=== PATIENT | male | born 1970 | race Two or more races ===

== ENCOUNTER 2020-10-21 18:09 | Emergency (ER) | payer SELFPAY ==
[~2020-10-21] VITALS: Ht 172.7 cm; Wt 55.3 kg
[2020-10-21 18:59] LABS: BASOPHILS % (AUTO) 0.7 % (0.0-2.0); EOSINOPHILS % (AUTO) 0.6 % (0.0-6.0); HEMATOCRIT 47 % (39-51); HEMOGLOBIN 15.5 g/dL (13.5-17.5); LYMPHOCYTES # (AUTO) 0.8 /CMM (0.8-4.8); LYMPHOCYTES % (AUTO) 12.3 % (20.0-44.0); MEAN CORPUSCULAR HGB CONC 33 g/dl (31.0-36.0); MEAN CORPUSCULAR VOLUME 96 fL (80-96); MONOCYTES # (AUTO) 0.8 /CMM (0.1-1.30); MONOCYTES % (AUTO) 11.8 % (2.0-12.0); NEUTROPHILS # (AUTO) 5.1 /CMM (1.8-8.9); NEUTROPHILS % (AUTO) 74.6 % (43.0-81.0); PLATELET COUNT (AUTO) 320 /CMM (150-450); RED BLOOD CELL COUNT(AUTO) 4.83 MIL/uL (4.5-6.0); WHITE BLOOD COUNT (AUTO) 6.8 K/uL (4.3-11.0)
[2020-10-21 19:13] LABS: ALBUMIN 3.6 g/dL (3.4-5.0); BILIRUBIN,DIRECT 0.2 mg/dL (0.0-0.2); BILIRUBIN,TOTAL 0.5 mg/dL (0.2-1.0); TOTAL PROTEIN, SERUM 8.2 g/dL (6.4-8.2)
--- NOTE | 2020-10-21 19:35 | NUR ---
PT PRESENTS TO ER C/O RECTAL BLEEDING BRIGHT RED X3 DAYS WITHOUT N/V/D/PAIN. DENIES OTHER COMPLAINT. RESP EVEN UNLABORED. NAD NOTED. A/OX4.
--- NOTE | 2020-10-21 20:04 | NUR ---
Patient discharged to home in stable condition. Written and verbal after care instructions given. Patient verbalizes understanding of instruction. AMBULATED WITH STEADY GAIT.
[2020-10-21 20:06] VITALS: BP 149/86
== END 2020-10-21 20:07 | disposition home or self-care (01) ==
LOC: ER 18:17
DX: K62.5 Hemorrhage of anus and rectum (principal); R74.01 Elevation of levels of liver transaminase levels; F10.10 Alcohol abuse, uncomplicated; Y90.9 Presence of alcohol in blood, level not specified
CPT/HCPCS: 36415; 80076-TC; 85025-TC; 85730-TC